=== PATIENT | female | born 1950 | race Caucasian/White ===

== ENCOUNTER 2016-07-14 20:21 | Emergency (ER) | payer MEDICARE, OTHER | END 2016-07-14 21:54 | disposition home or self-care (01) | LOC: ER 20:21 | DX: G45.9 Transient cerebral ischemic attack, unspecified (principal); G31.9 Degenerative disease of nervous system, unspecified; R41.0 Disorientation, unspecified; I69.351 Hemiplegia and hemiparesis following cerebral infarction affecting right dominant side; G25.81 Restless legs syndrome; I48.91 Unspecified atrial fibrillation; G40.909 Epilepsy, unspecified, not intractable, without status epilepticus; E11.9 Type 2 diabetes mellitus without complications; K21.9 Gastro-esophageal reflux disease without esophagitis; I10 Essential (primary) hypertension; Z79.01 Long term (current) use of anticoagulants; Z79.899 Other long term (current) drug therapy; Z88.0 Allergy status to penicillin; Z88.1 Allergy status to other antibiotic agents ==